=== PATIENT | female | born 1980 | race Caucasian/White ===

== ENCOUNTER 2018-09-27 13:07 | Outpatient (CLI) | payer OTHER ==
[2018-09-27] MEDS ORDERED: MULT-658 PO (13:36)
== END 2018-09-27 23:59 | disposition home or self-care (01) ==
LOC: STAR 13:07
PROVIDERS: ATTEND Specialist
DX: Z02.9 Encounter for administrative examinations, unspecified (principal)

== ENCOUNTER 2018-10-02 09:40 | Day surgery (SDC) | payer OTHER ==
[~2018-10-02] VITALS: Ht 170.2 cm; Wt 61.9 kg
[~2018-10-02 09:40] MED LIST: MULT-658 PO
[2018-10-02] MEDS ORDERED: LACTATED RINGERS 1,000 ML IV SCH (09:55)
[2018-10-02] MEDS ORDERED: GABAPENTIN 300 MG CAPSULE PO ONE (10:00)
[2018-10-02] MEDS ORDERED: SCOPOLAMINE PATCH, 1.5MG PATCH.TD72 TD ONE (10:00)
[2018-10-02] MEDS ORDERED: ACETAMINOPHEN 500 MG TABLET PO ONE (10:00)
[2018-10-02 10:02] VITALS: BP 107/75
[2018-10-02] MEDS ORDERED: MIDAZOLAM 1 MG/ML, 2ML ONE (10:04)
[2018-10-02] MEDS ORDERED: FENTANYL PF 250 MCG/5ML ONE (10:05)
[2018-10-02] MEDS ORDERED: DEXAMETHASONE 4 MG/ML, 1ML ONE (10:09)
[2018-10-02] MEDS ORDERED: ROCURONIUM 10MG/ML,5ML ONE (10:09)
[2018-10-02] MEDS ORDERED: GLYCOPYRROLATE 0.2MG/1ML, 5ML ONE (10:09)
[2018-10-02] MEDS ORDERED: CEFAZOLIN 1,000 MG ONE (10:09)
[2018-10-02] MEDS ORDERED: NEOSTIGMINE 1 MG/ML, 10ML ONE (10:09)
[2018-10-02] MEDS ORDERED: PROPOFOL 10 MG/ML, 20ML ONE (10:09)
[2018-10-02] MEDS ORDERED: ONDANSETRON 2MG/ML, 2ML ONE (10:09)
[2018-10-02 10:29] LABS: HCG UR SG 1.027 (1.003-1.030)
[2018-10-02] MEDS ORDERED: HALOPERIDOL 5 MG/ML IV PRN (10:30)
[2018-10-02] MEDS ORDERED: PROMETHAZINE 12.5 MG SUPP PR PRN (10:30)
[2018-10-02] MEDS ORDERED: ONDANSETRON ODT 8 MG PO PRN (10:30)
[2018-10-02] MEDS ORDERED: MORPHINE SULFATE 4 MG/ML, 1ML IVPush PRN (10:30)
[2018-10-02] MEDS ORDERED: PROMETHAZINE 25 MG/ML, 1ML IM PRN ×2 (10:30)
[2018-10-02] MEDS ORDERED: FENTANYL PF 100 MCG/2ML IV PRN (10:30)
[2018-10-02] MEDS ORDERED: PROMETHAZINE 25 MG/ML, 1ML IV PRN (10:30)
[2018-10-02] MEDS ORDERED: LABETALOL 5MG/ML, 20ML IV PRN (10:30)
[2018-10-02] MEDS ORDERED: PROMETHAZINE 25 MG SUPP PR PRN (10:30)
[2018-10-02] MEDS ORDERED: HYDROmorphone 2 MG/ML, 1ML IVPush PRN (10:30)
[2018-10-02] MEDS ORDERED: hydrALAzine 20 MG/ML, 1ML IV PRN (10:30)
[2018-10-02] MEDS ORDERED: MEPERIDINE/PF 25MG/0.5ML IVPush PRN (10:30)
[2018-10-02] MEDS ORDERED: ONDANSETRON 2MG/ML, 2ML IV PRN (10:30)
[2018-10-02] MEDS ORDERED: OXYcodone 5 MG/5 ML ORAL.SOL UDC PO PRN (10:30)
[2018-10-02] MEDS ORDERED: EPINEPHRINE 1 MG/ML, 1ML ONE (10:49)
[2018-10-02] MEDS ORDERED: SILVER NITRATE STICK TP ONE (10:49)
[2018-10-02] MEDS ORDERED: BUPIVACAINE/PF 0.25% ONE (10:49)
[2018-10-02] MEDS ORDERED: FLUORESCEIN SODIUM 500 MG/5 ML ONE (10:49)
[2018-10-02] MEDS ORDERED: FENTANYL PF 100 MCG/2ML ONE ×3 (12:40→13:59)
[2018-10-02] MEDS ORDERED: KETOROLAC 30 MG/1 ML ONE (12:58)
[2018-10-02] MEDS ORDERED: OXYcodone 5 MG/5 ML ORAL.SOL UDC ONE (13:48)
[2018-10-02] MEDS ORDERED: MEPERIDINE/PF 25MG/ML,1ML ONE (13:59)
== END 2018-10-02 17:30 | disposition home or self-care (01) ==
LOC: OUT 09:40
PROVIDERS: ATTEND Specialist
DX: D25.9 Leiomyoma of uterus, unspecified (principal); N84.1 Polyp of cervix uteri; N93.9 Abnormal uterine and vaginal bleeding, unspecified
CPT/HCPCS: 36415; 58262; 58301; 81025; 85014; 85018; 88307; J0171; J0690; J1100; J1885; J2175; J2250; J2405; J2704; J2710; J3010; J3490; J7120